=== PATIENT | female | born 1950 | race Caucasian/White ===

== ENCOUNTER 2017-09-06 13:30 | Outpatient (CLI) | payer MEDICARE | END 2017-09-06 13:31 | disposition home or self-care (01) | LOC: BICMAMMO 13:30 | PROVIDERS: ATTEND Internal Medicine | DX: Z12.31 Encounter for screening mammogram for malignant neoplasm of breast (principal); Z85.3 Personal history of malignant neoplasm of breast | CPT/HCPCS: 77067; G0202 ==

== ENCOUNTER 2018-09-07 13:49 | Outpatient (CLI) | payer MEDICARE | END 2018-09-07 13:50 | disposition home or self-care (01) | LOC: BICMAMMO 13:49 | PROVIDERS: ATTEND Obstetrics & Gynecology | DX: Z12.31 Encounter for screening mammogram for malignant neoplasm of breast (principal); R92.1 Mammographic calcification found on diagnostic imaging of breast; Z85.3 Personal history of malignant neoplasm of breast | CPT/HCPCS: 77063; 77067 ==

== ENCOUNTER 2019-09-22 13:28 | Outpatient (CLI) | payer MEDICARE ==
--- NOTE | 2019-09-22 15:07 | BD ---
DEXA BONE MINERAL DENSITOMETRY STUDY: HISTORY: Postmenopausal. FINDINGS: LUMBAR SPINE BMD (g/cm2) T-SCORE Z-SCORE L1 0.736 -2.3 0.6 L2 0.82 -1.9 0 L3 0.808 -2.5 -0.5 L4 0.651 -3.7 -1.7 L1-L4 0.749 -2.7 -0.8 LEFT FEMORAL NECK 0.691 -1.4 0.2 TOTAL FEMUR 0.921 -0.2 1.2 There is mild left convex scoliosis of the thoracolumbar spine. There has been an interval decrease in the bone mineral density of the lumbar spine when compared to prior study of 07/04/2013 by 3.5% with an increase in the bone mineral density of the left femoral ne ck compared to prior study of 18.6%. IMPRESSION: 1. Moderate osteopenia of the lumbar spine, indicating a four fold increased risk for fracture. 2. Mild osteopenia of the left femoral neck, indicating a two fold increased risk for fracture. 3. This patient meets the WHO criteria for osteoporosis. POS: [facility]
--- NOTE | 2019-09-22 15:41 | MMO ---
Bilateral MAMMO Bilat Screen [facility]. CLINICAL HISTORY: Patient is 69 years old and is seen for screening. The patient has no family history of breast cancer. 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 VIEWS: The views performed were: bilateral craniocaudal with tomosynthesis and bilateral mediolateral oblique with tomosynthesis. FILMS COMPARED: The present examination has been compared to prior imaging studies performed at [facility] on 09/06/2017 and 09/07/2018, and at [facility] on 07/19/2015 and 08/04/2016. This study has been interpreted with the assistance of computer-aided detection. MAMMOGRAM FINDINGS: There are scattered fibroglandular densities. Finding 1: There are stable benign appearing calcifications seen in both breasts. Finding 2: There is a stable post-surgical scar seen in the left breast. There are no suspicious masses, suspicious calcifications, or new areas of architectural distortion. IMPRESSION: THERE IS NO MAMMOGRAPHIC EVIDENCE OF MALIGNANCY. A ROUTINE FOLLOW-UP MAMMOGRAM IN 1 YEAR IS RECOMMENDED. THE RESULTS OF THIS EXAM WERE SENT TO THE PATIENT. ACR BI-RADS Category 2 - Benign finding MAMMOGRAPHY NOTE: 1. A negative mammogram report should not delay a biopsy if a dominant of clinically suspicious mass is present. 2. Approximately 10% to 15% of breast cancers are not detected by mammography. 3. Adenosis and dense breasts may obscure an underlying neoplasm. Reported by: CHELITA CALI MD Electonically Signed: [id number]
== END 2019-09-22 13:29 | disposition home or self-care (01) ==
LOC: BICMAMMO 13:28
PROVIDERS: ATTEND Internal Medicine
DX: Z12.31 Encounter for screening mammogram for malignant neoplasm of breast (principal); Z13.820 Encounter for screening for osteoporosis; Z78.0 Asymptomatic menopausal state; M85.89 Other specified disorders of bone density and structure, multiple sites
CPT/HCPCS: 77063; 77067; 77080

== ENCOUNTER 2019-11-30 07:29 | Outpatient (CLI) | payer MEDICARE ==
--- NOTE | 2019-11-30 07:53 | ULT ---
US Hepatic Doppler History: Abnormal liver function tests Comparison: None. Findings: Real-time grayscale, color, and spectral analysis of the liver was performed. The visualized portion of the pancreas is unremarkable. Diffuse increased hepatic echotexture without mass. Portal vein is patent as well as the hepatic veins. Normal phasicity. Right lobe of the liver measures 14.8 cm in length. Hepatic artery is patent. The common bile duct measures 5 mm, normal. The gallbladder wall thickness is normal. No pericholecystic fluid or cholelithiasis. Spleen measures 8.7 cm in length. Splenic artery and vein are patent. Impression: 1. Diffuse increased hepatic echotexture suggesting steatosis versus fibrotic disease process such as cirrhosis although no contour nodularity is appreciated. 2. No hepatic mass. 3. Normal hepatic Doppler.
== END 2019-11-30 07:30 | disposition home or self-care (01) ==
LOC: BICULT 07:29
PROVIDERS: ATTEND Physician Assistant Medical
DX: R94.5 Abnormal results of liver function studies (principal)
CPT/HCPCS: 36415; 76705; 80074; 82103; 82104; 82390; 82728; 83516; 83540; 83550; 86038; 86225; 86706; 86708

== ENCOUNTER 2020-02-15 08:46 | Outpatient (CLI) | payer MEDICARE ==
--- NOTE | 2020-02-15 10:32 | MMO ---
Bilateral MAMMO Bilat Diag [facility]. CLINICAL HISTORY: Patient is 69 years old and is seen for diagnostic exam,lump or thickening in the right breast and pain in the left breast. The patient has no family history of breast cancer. The patient has a history of malignant (generic) at age 58. 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 VIEWS: The views performed were: bilateral craniocaudal with tomosynthesis; bilateral mediolateral oblique with tomosynthesis; bilateral mediolateral with tomosynthesis; and bilateral exaggerated craniocaudal. FILMS COMPARED: The present examination has been compared to prior imaging studies performed at [facility] on 09/06/2017, 09/07/2018, 09/22/2019 and 02/15/2020. This study has been interpreted with the assistance of computer-aided detection. MAMMOGRAM FINDINGS: There are scattered fibroglandular densities. Finding 1: There are stable post operative changes seen in the left breast. Finding 2: There are no mammographic abnormalities to explain the patient's left breast pain. The patient is referred back to her clinician. Negative imaging findings should not preclude biopsy if clinical findings are suspicious. Finding 3: There are no mammographic or sonographic abnormalities in the area of palpable concern in the right breast. The patient is referred back to her clinician. Negative imaging findings should not preclude biopsy if clinical findings are suspicious. There are no suspicious masses, suspicious calcifications, or new areas of architectural distortion. IMPRESSION: FINDING 2: THERE ARE NO MAMMOGRAPHIC ABNORMALITIES TO EXPLAIN THE PATIENT'S LEFT BREAST PAIN. THE PATIENT IS REFERRED BACK TO HER CLINICIAN. NEGATIVE IMAGING FINDINGS SHOULD NOT PRECLUDE BIOPSY IF CLINICAL FINDINGS ARE SUSPICIOUS. FINDING 3: THERE ARE NO MAMMOGRAPHIC ABNORMALITIES IN THE AREA OF PALPABLE CONCERN IN THE RIGHT BREAST. THE PATIENT IS REFERRED BACK TO HER CLINICIAN. NEGATIVE IMAGING FINDINGS SHOULD NOT PRECLUDE BIOPSY IF CLINICAL FINDINGS ARE SUSPICIOUS. THE RESULTS OF THIS EXAM WERE SENT TO THE PATIENT. ACR BI-RADS Category 2 - Benign finding MAMMOGRAPHY NOTE: 1. A negative mammogram report should not delay a biopsy if a dominant of clinically suspicious mass is present. 2. Approximately 10% to 15% of breast cancers are not detected by mammography. 3. Adenosis and dense breasts may obscure an underlying neoplasm. Reported by: CAR GUNDERSON MD Electonically Signed: [id number]
--- NOTE | 2020-02-15 10:33 | MMO ---
Right US Breast Limited Rt. CLINICAL HISTORY: Patient is 69 years old and is seen for . 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 VIEWS: The views performed were: . FILMS COMPARED: The present examination has been compared to prior imaging studies performed at [facility] on 09/06/2017, 09/07/2018, 09/22/2019 and 02/15/2020. This study has been interpreted with the assistance of computer-aided detection. RIGHT BREAST ULTRASOUND FINDINGS: On ultrasound, no suspicious findings are identified. There are no mammographic or sonographic abnormalities in the area of palpable concern. The patient is referred back to her clinician. Negative imaging findings should not preclude biopsy if clinical findings are suspicious. IMPRESSION: THERE ARE NO SONOGRAPHIC ABNORMALITIES IN THE AREA OF PALPABLE CONCERN. THE PATIENT IS REFERRED BACK TO HER CLINICIAN. NEGATIVE IMAGING FINDINGS SHOULD NOT PRECLUDE BIOPSY IF CLINICAL FINDINGS ARE SUSPICIOUS. THE RESULTS OF THIS EXAM WERE SENT TO THE PATIENT. ACR BI-RADS Category 1 - Negative MAMMOGRAPHY NOTE: 1. A negative mammogram report should not delay a biopsy if a dominant of clinically suspicious mass is present. 2. Approximately 10% to 15% of breast cancers are not detected by mammography. 3. Adenosis and dense breasts may obscure an underlying neoplasm. Reported by: CAR GUNDERSON MD Electonically Signed: [id number]
--- NOTE | 2020-02-15 12:30 | RAD ---
LEFT RIB SERIES: COMPARISON: Mammogram 02/15/2020. HISTORY: Left chest pain. FINDINGS: Three views of the left ribs show no evidence of displaced left rib fracture. There are calcificatio ns seen at some of the costochondral cartilage junctions. No underlying pleural thickening or pneumo thorax are seen. A calcification projecting just outside of the ribs in the left breast likely repre sents dystrophic calcification seen on prior mammogram. IMPRESSION: No evidence of displaced left rib fracture. POS: [facility]
--- NOTE | 2020-02-15 12:31 | RAD ---
RIGHT RIB SERIES: HISTORY: Right rib pain. FINDINGS: Three views of the right ribs show no evidence of a displaced right rib fracture. No underlying pleu ral thickening or pneumothorax is seen. No expansile rib lesions are seen. IMPRESSION: No evidence of a displaced right rib fracture. POS: [facility]
== END 2020-02-15 08:47 | disposition home or self-care (01) ==
LOC: BICMAMMO 08:46
PROVIDERS: ATTEND Internal Medicine
DX: N64.4 Mastodynia (principal); R07.9 Chest pain, unspecified; N63.10 Unspecified lump in the right breast, unspecified quadrant
CPT/HCPCS: 71100 ×2; 76642; 77066; G0279

== ENCOUNTER 2022-06-02 11:18 | Outpatient (CLI) | payer MEDICARE | END 2022-06-02 11:19 | disposition home or self-care (01) | LOC: BICMAMMO 11:18 | PROVIDERS: ATTEND Internal Medicine | DX: Z12.31 Encounter for screening mammogram for malignant neoplasm of breast (principal); Z85.3 Personal history of malignant neoplasm of breast; Z98.890 Other specified postprocedural states | CPT/HCPCS: 77063; 77067 ==

== ENCOUNTER 2023-07-28 08:55 | Outpatient (CLI) | payer MEDICARE | END 2023-07-28 08:56 | disposition home or self-care (01) | LOC: BICMAMMO 08:55 | PROVIDERS: ATTEND Internal Medicine | DX: Z12.31 Encounter for screening mammogram for malignant neoplasm of breast (principal); Z85.3 Personal history of malignant neoplasm of breast; Z98.890 Other specified postprocedural states | CPT/HCPCS: 77063; 77067 ==

== ENCOUNTER 2024-07-31 09:49 | Outpatient (CLI) | payer MEDICARE | END 2024-07-31 09:50 | disposition home or self-care (01) | LOC: BICMAMMO 09:49 | PROVIDERS: ATTEND Internal Medicine | DX: Z12.31 Encounter for screening mammogram for malignant neoplasm of breast (principal); Z78.0 Asymptomatic menopausal state; M85.89 Other specified disorders of bone density and structure, multiple sites; Z85.3 Personal history of malignant neoplasm of breast; Z98.890 Other specified postprocedural states | CPT/HCPCS: 77063; 77067; 77080 ==

== ENCOUNTER 2025-08-03 10:59 | Outpatient (CLI) | payer MEDICARE | END 2025-08-03 11:00 | disposition home or self-care (01) | LOC: BICMAMMO 10:59 | PROVIDERS: ATTEND Internal Medicine | DX: Z12.31 Encounter for screening mammogram for malignant neoplasm of breast (principal); Z85.3 Personal history of malignant neoplasm of breast; Z98.890 Other specified postprocedural states | CPT/HCPCS: 77063; 77067 ==